=== PATIENT | male | born 1980 | race American Indian/Alaskan Native ===

== ENCOUNTER 2018-06-07 22:54 | Emergency (ER) | payer SELFPAY ==
[2018-06-07 23:11] VITALS: BP 138/85
[2018-06-07] MEDS ORDERED: PERCOCET 5/325 ONE (23:59)
[2018-06-08] MEDS ORDERED: PERCOCET 5/325 PO ONE (00:03)
--- NOTE | 2018-06-08 00:09 | XRay Report ---
FINAL REPORT EXAM: XR HAND 2V LT HISTORY: nail in left hand TECHNIQUE: AP and lateral views of the left hand were submitted. FINDINGS: There is in imbedded metallic nail fragment within the ventral soft tissues overlying the distal interphalangeal joint of the middle finger. There is no associated fracture. The wrist joint is well maintained. IMPRESSION: Imbedded metallic nail fragment within the ventral soft tissues overlying the distal interphalangeal joint of the middle finger. No associated fracture or dislocation.
--- NOTE | 2018-06-08 00:51 | Emergency Department Report ---
ED Upper Extremity Inj HPI - General Chief Complaint: Extremity Injury, Upper Stated Complaint: NAIL IN FINGER Time Seen by Provider: 06/08/18 00:09 Source: family Mode of arrival: Ambulatory Limitations: No Limitations - History of Present Illness Complaint: Injury to:: left, hand, finger -: Sudden, This afternoon Other Extremity Injury: Fingers: Left Other Injuries: none Handedness: right Place: work Context: direct blow Associated Symptoms: denies other symptoms - Related Data Previous Rx's Medication Instructions Recorded Last Taken Type cephALEXin [Keflex] 500 mg PO Q6HR 7 Days #28 capsule 06/08/18 Unknown Rx Allergies Allergy/AdvReac Type Severity Reaction Status Date / Time No Known Allergies Allergy Verified 11/18/15 08:45 ED Review of Systems ROS: Stated complaint: NAIL IN FINGER Other details as noted in HPI Constitutional: denies: fever, malaise Neurological: denies: numbness, paresthesias ED Past Medical Hx - Past Medical History Previous Medical History?: No - Surgical History Past Surgical History?: No - Social History Smoking Status: Current Every Day Smoker Substance Use Type: None - Medications Home Medications: Home Medications Medication Instructions Recorded Confirmed Last Taken Type cephALEXin [Keflex] 500 mg PO Q6HR 7 Days #28 capsule 06/08/18 Unknown Rx ED Physical Exam - General Limitations: No Limitations General appearance: alert, in no apparent distress - Respiratory Respiratory exam: Absent: respiratory distress - Neurological Exam Neurological exam: Present: alert, oriented X3, normal gait - Other Other exam information: third digit left: nail imbedded across distal volar pad of third middle finger 1 cm above DIP, bandage in place at distal left index finger intact sensation through digit, FROM at DIP PIP ED Course Vital Signs 06/07/18 06/08/18 23:08 00:23 Temperature 98.6 F Pulse Rate 66 Respiratory 18 18 Rate Blood Pressure 138/85 O2 Sat by Pulse 99 Oximetry - I & D Left Finger Type of Procedure: Simple Site: distal middle finger, nail removed with hemostat afer digital block I & D Procedure: sterile dressing applied Progress: slow bleeding controlled with pressure - Nerve Block Consent Obtained: verbal consent Time Out Performed: Yes Local Anesthetic Used: Marcaine 0.5% Side: left Nerve Blocks: digital Procedure Successful: Yes Complications: none Patient Tolerated Procedure: well ED Medical Decision Making - Radiology Data Radiology results: report reviewed, image reviewed nail imbedded in soft tissue no fx - Medical Decision Making nail removed from left middle finger soft tissue, no intrusion of bone or joint. rx: keflex, patient repeatedly insists that tetanus status is UTD Given return precautions Critical care attestation.: If time is entered above; I have spent that time in minutes in the direct care of this critically ill patient, excluding procedure time. ED Disposition Clinical Impression: Foreign body (FB) in soft tissue, Finger injury, Puncture wound of finger of left hand Disposition: DC- TO HOME OR SELFCARE Is pt being admited?: No Does the pt Need Aspirin: No Condition: Stable Instructions: Soft Tissue Foreign Body (ED) Prescriptions: cephALEXin [Keflex] 500 mg PO Q6HR 7 Days #28 capsule Time of Disposition: 00:54
[2018-06-08] MEDS ORDERED: KEFLEX PO ONE (00:56)
== END 2018-06-08 01:35 | disposition home or self-care (01) ==
LOC: ED 22:54
DX: S61.343A Puncture wound with foreign body of left middle finger with damage to nail, initial encounter (principal); M79.5 Residual foreign body in soft tissue; F17.200 Nicotine dependence, unspecified, uncomplicated; W22.8XXA Striking against or struck by other objects, initial encounter; Y92.69 Other specified industrial and construction area as the place of occurrence of the external cause; Y99.0 Civilian activity done for income or pay
CPT/HCPCS: 99283

== ENCOUNTER 2022-06-15 05:06 | Emergency (ER) | payer SELFPAY | END 2022-06-15 05:20 | disposition left against medical advice (07) | LOC: ED 05:06 | DX: S99.911A Unspecified injury of right ankle, initial encounter (principal); Z53.21 Procedure and treatment not carried out due to patient leaving prior to being seen by health care provider; X58.XXXA Exposure to other specified factors, initial encounter; Y93.89 Activity, other specified; Y92.89 Other specified places as the place of occurrence of the external cause; Y99.8 Other external cause status ==